=== PATIENT | female | born 1940 | race Caucasian/White ===

== ENCOUNTER 2016-09-24 18:00 | Inpatient (IN) ==
[2016-09-25] MEDS: *HR* OxyCODONE Immed Rel 5 MG TABLET PO PRN ×2 (17:15→22:58)
[2016-09-25] MEDS: Gabapentin 100 MG CAPSULE PO SCH (20:09)
--- NOTE | 2016-09-26 04:51 | Internal Med History&Physical ---
Date of Encounter: 09/26/16 Time of Encounter: 09:16 Assessment and Plan (1) Weakness Current visit: No Status: Acute PT and OT to work on an increasing strength, endurance safe T improving ADL will work on maximizing functional independent this would ADL, task to maximize CAT for safe return to home. d (2) Opiate withdrawal Current visit: Yes Status: Acute Well start on a lower dose of pain medications to avoid excessive withdrawal symptoms (3) Hypertension Current visit: Yes Status: Chronic Qualifiers: Hypertension type: essential hypertension Qualified Code(s): I10 - Essential (primary) hypertension Internal Medicine - H&P: HPI Admitted From: Intrahospital Transfer Plans for Post Hospital Care: Home History of present illness: Ms. Angulo is a 76 year old female transferred to this facility for rehabilitation. Initially she was admitted for generalized weakness. She was trying to ambulate and fell. She stated that this weakness started the day after she ran out of her chronic opiate medication. She has been unable to refill them. She complains of tailbone pain after the fall. CT revealed no acute fracture of the lumbar spine and pelvis. Patient lives alone. On today' s examination patient feels well. She has minimal pain. She is more awake alert and has more energy. No shortness of breath. No chest pain Past Med Surg Social Fam HX - Past Medical History Medical history: CVA, fibromyalgia, GERD, hyperlipidemia, hypertension - Past Surgical History Surgical History: herniorrhaphy, hip replacement, hysterectomy, knee replacement - Social History Smoking Status: Never smoker Alcohol use: none Drug use: none - Family History Mother Living Status: Father Living Status: Internal Medicine - H&P: Meds Citalopram Hydrobromide [Celexa] 20 mg PO DAILY 09/22/16 [History] Diltiazem CD (24hr) [Cardizem CD] 240 mg PO DAILY 09/22/16 [History] Furosemide [Lasix] 20 mg PO DAILY 09/22/16 [History] Meclizine HCl [Verticalm] 25 mg PO BID PRN 09/22/16 [History] Omeprazole [PriLOSEC] 20 mg PO DAILY 09/22/16 [History] Potassium Chloride [Klor-Con Sprinkle] 10 meq PO BID 09/22/16 [History] Simvastatin [Zocor] 20 mg PO HS 09/22/16 [History] Zolpidem [Ambien] 5 mg PO HS 09/22/16 [History] Allergies morphine Allergy (Verified 09/22/16 12:10) Nausea All Systems PM: A 10-system review of systems was performed and is negative for pertinent findings except as documented above in the HPI. - Constitutional Constitutional: falls, lethargy, malaise, weakness - Cardiovascular Cardiovascular ROS IM: no chest pain, no diaphoresis, no dyspnea, no lightheadedness, no palpitations, no syncope - Respiratory Respiratory: no cough, no dyspnea, no wheezing, no excessive phlegm production - Gastrointestinal Gastrointestinal: no abdominal pain, no diarrhea, no hematemesis, no hematochezia, no melena, no nausea, no vomiting - Musculoskeletal Musculoskeletal ROS IM: back pain, joint swelling, stiffness - Neurological Neurological ROS: abnormal gait - Psychiatric Psychiatric: anxiety, depression - Constitutional Vitals: Temp Pulse Resp BP Pulse Ox 97.4 F L 74 18 131/78 90 L 09/26/16 04:27 09/26/16 04:27 09/25/16 23:59 09/26/16 04:27 09/26/16 04:27 General appearance: Present: A&O X 3, pleasant, no acute distress - Respiratory Respiratory exam: Present: CTAB. Absent: accessory muscle use, rales, rhonchi, wheezes - Cardiovascular Cardiovascular exam: Present: RRR, +S1, +S2. Absent: diastolic murmur, gallop, rubs, systolic murmur - GI/Abdominal GI/Abdominal exam: Present: normal bowel sounds, soft, no peritoneal signs. Absent: distended, tenderness - Extremities Exam Extremities exam: Present: warm, radial pulses palpable and symetrical. Absent : calf tenderness, cyanotic, pedal edema - Neurological Exam Neurological exam: Present: oriented X3, no focal deficits. Absent: pronater drift, facial droop, speech deficit Internal Med - H&P Results - Labs CBC & Chem 7: 09/26/16 05:05 09/26/16 05:05 - VTE Documentation of Mechanical Device: Graduated compression elastic hosiery
[2016-09-26] MEDS: *HR* OxyCODONE Immed Rel 5 MG TABLET PO PRN ×3 (05:05→18:10)
[2016-09-26 05:31] LABS: Basophils % 0.4 %; Eosinophils # 0.2 K/mcL (0.0-0.6); Hematocrit 34.3 % (35.3-44.9); Hemoglobin 11.4 g/dL (11.5-15.4); Immature Granulocytes % 0.4 % (0-4); Lymphocytes # 1.4 K/mcL (0.6-4.6); Lymphocytes % 19.4 %; Mean Corpuscular HGB Conc 33.2 g/dL (31.6-35.5); Mean Corpuscular Hemoglobin 29.8 pg (28.0-33.3); Mean Corpuscular Volume 89.6 fL (83.0-100.0); Mean Platelet Volume 9.9 fL (9.4-12.4); Monocytes # 0.6 K/mcL (0.0-1.3); Monocytes % 7.9 %; Platelet Count 261 K/mcL (140-400); Red Blood Count 3.83 M/mcL (3.82-4.97); Red Cell Distribution Width 12.8 % (11.5-14.5); Segmented Neutrophils % 68.9 %
[2016-09-26 05:38] LABS: INR 1.1; Prothrombin Time 12.2 Seconds (9.4-12.1)
[2016-09-26 05:40] LABS: Activated Partial Thrombo Time 28.6 Seconds (26.0-36.0)
[2016-09-26 05:45] LABS: BUN/Creatinine Ratio 16 (6-26); Blood Urea Nitrogen 12 mg/dL (7-20); Calcium 8.9 mg/dL (8.6-10.8); Carbon Dioxide 31 mEq/L (19-29); Chloride 99 mEq/L (98-109); Glucose 100 mg/dL (70-99); Osmolality,Calculated 292 (280-300); Potassium 3.5 mEq/L (3.5-4.5); Sodium 141 mEq/L (136-145); eGFR For African Americans > 60 (> 60); eGFR For Non-African Americans > 60 (> 60)
[2016-09-26] MEDS: Furosemide 20 MG TABLET PO SCH (09:34)
[2016-09-26] MEDS: Diltiazem CD (24hr) 240 MG CAPSULE PO SCH (09:34)
[2016-09-26] MEDS: Gabapentin 100 MG CAPSULE PO SCH ×3 (09:34→20:07)
[2016-09-27] MEDS: *HR* OxyCODONE Immed Rel 5 MG TABLET PO PRN ×3 (03:36→20:05)
[2016-09-27] MEDS: Furosemide 20 MG TABLET PO SCH (09:45)
[2016-09-27] MEDS: Gabapentin 100 MG CAPSULE PO SCH ×3 (09:45→20:03)
[2016-09-27] MEDS: Diltiazem CD (24hr) 240 MG CAPSULE PO SCH (09:45)
--- NOTE | 2016-09-27 12:25 | Internal Med Progress Note ---
Date of Encounter: 09/27/16 Time of Encounter: 12:23 - Assessment and plan (1) Opiate withdrawal Current Visit: Yes Status: Acute Assessment and plan: Rarely the patient's renal pain pills for some time and rationale. So she may have had some degree of withdrawal symptoms (2) Hypertension Current Visit: Yes Status: Chronic Qualifiers: Hypertension type: essential hypertension Qualified Code(s): I10 - Essential (primary) hypertension (3) Weakness Current Visit: No Status: Acute Assessment and plan: May be due to age it may be due to chronic debilitation and may be due to opiate withdrawal. It is improved - Time Spent With Patient less than 15 minutes - Subjective Interval history: Patient had weakness fell lives alone and was brought in now for deconditioning. - Constitutional Vitals: Temp Pulse Resp BP Pulse Ox 98.0 F 71 18 133/70 93 L 09/27/16 06:40 09/27/16 06:40 09/27/16 06:40 09/27/16 06:40 09/27/16 06:40 General appearance: Present: A&O X 3, pleasant, no acute distress - Head Head exam: Present: atraumatic, normal inspection, normocephalic - Neck Neck exam general surgery: Present: supple, trachea midline. Absent: lymphadenopathy - Respiratory Respiratory exam: Present: CTAB. Absent: accessory muscle use, rales, rhonchi, wheezes - Cardiovascular Cardiovascular exam: Present: RRR, +S1, +S2. Absent: diastolic murmur, gallop, rubs, systolic murmur - GI/Abdominal GI/Abdominal exam: Present: normal bowel sounds, soft, no peritoneal signs. Absent: distended, tenderness Internal Medicine: Result - Labs CBC & Chem 7: 09/26/16 05:05 09/26/16 05:05 Labs: Lab appears to be stable - ABG Interpretation ABG results: PT/INR, D-dimer PT 12.2 Seconds (9.4-12.1) H 09/26/16 05:05 - VTE Documentation of Mechanical Device: Graduated compression elastic hosiery Consult Discharge Plan - Plan Referrals: Alexia Gee [Primary Care Provider] -
[2016-09-28] MEDS: *HR* OxyCODONE Immed Rel 5 MG TABLET PO PRN ×3 (03:36→18:38)
[2016-09-28 05:51] LABS: BUN/Creatinine Ratio 11 (6-26); Blood Urea Nitrogen 8 mg/dL (7-20); Calcium 9.2 mg/dL (8.6-10.8); Carbon Dioxide 31 mEq/L (19-29); Chloride 100 mEq/L (98-109); Glucose 108 mg/dL (70-99); Osmolality,Calculated 289 (280-300); Potassium 3.9 mEq/L (3.5-4.5); Sodium 140 mEq/L (136-145); eGFR For African Americans > 60 (> 60); eGFR For Non-African Americans > 60 (> 60)
[2016-09-28 05:58] LABS: Basophils % 0.4 %; Eosinophils # 0.2 K/mcL (0.0-0.6); Eosinophils % 2.9 %; Hematocrit 33.9 % (35.3-44.9); Hemoglobin 11.4 g/dL (11.5-15.4); Immature Granulocytes % 0.4 % (0-4); Lymphocytes # 1.4 K/mcL (0.6-4.6); Lymphocytes % 18.6 %; Mean Corpuscular HGB Conc 33.6 g/dL (31.6-35.5); Mean Corpuscular Volume 89.2 fL (83.0-100.0); Mean Platelet Volume 9.8 fL (9.4-12.4); Monocytes # 0.6 K/mcL (0.0-1.3); Monocytes % 7.6 %; Neutrophils # 5.2 K/mcL (1.6-8.9); Platelet Count 276 K/mcL (140-400); Red Cell Distribution Width 12.6 % (11.5-14.5); Segmented Neutrophils % 70.1 %
[2016-09-28] MEDS: Gabapentin 100 MG CAPSULE PO SCH ×3 (10:02→21:38)
[2016-09-28] MEDS: Furosemide 20 MG TABLET PO SCH (10:02)
[2016-09-28] MEDS: Diltiazem CD (24hr) 240 MG CAPSULE PO SCH (10:03)
--- NOTE | 2016-09-28 11:47 | Internal Med Progress Note ---
Date of Encounter: 09/28/16 Time of Encounter: 11:45 - Assessment and plan (1) Weakness Current Visit: No Status: Acute Assessment and plan: May be due to age it may be due to chronic debilitation and may be due to opiate withdrawal. It is improved (2) Opiate withdrawal Current Visit: Yes Status: Acute Assessment and plan: Opiate medications being monitored carefully. (3) Hypertension Current Visit: Yes Status: Chronic Qualifiers: Hypertension type: essential hypertension Qualified Code(s): I10 - Essential (primary) hypertension - Time Spent With Patient less than 15 minutes - Subjective Interval history: Complains of mild tailbone pain. Also complains constipated. Given Colace. No shortness of breath. No chest pain. Feels like she is getting stronger every day. No chest pain. No nausea or vomiting. Good oral intake - Constitutional Vitals: Temp Pulse Resp BP Pulse Ox 98.4 F 71 18 134/75 92 L 09/28/16 07:51 09/28/16 07:51 09/28/16 07:51 09/28/16 07:51 09/28/16 07:51 General appearance: Present: A&O X 3, pleasant, no acute distress - Respiratory Respiratory exam: Present: CTAB. Absent: accessory muscle use, rales, rhonchi, wheezes - Cardiovascular Cardiovascular exam: Present: RRR, +S1, +S2. Absent: diastolic murmur, gallop, rubs, systolic murmur - GI/Abdominal GI/Abdominal exam: Present: normal bowel sounds, soft, no peritoneal signs. Absent: distended, tenderness - Extremities Exam Extremities exam: Present: warm, radial pulses palpable and symetrical. Absent : calf tenderness, cyanotic, pedal edema - Neurological Exam Neurological exam: Present: CN II-XII intact, oriented X3, no focal deficits. Absent: pronater drift, facial droop, speech deficit Internal Medicine: Result - Labs CBC & Chem 7: 09/28/16 05:30 09/28/16 05:30 Labs: Short CBC 09/28/16 Range/Units 05:30 WBC 7.5 (4.3-11.1) K/mcL Hgb 11.4 L (11.5-15.4) g/dL Hct 33.9 L (35.3-44.9) % Plt Count 276 (140-400) K/mcL Neutrophils # 5.2 (1.6-8.9) K/mcL BMP 09/28/16 05:30 Sodium 140 Potassium 3.9 Chloride 100 Carbon Dioxide 31 H BUN 8 Creatinine 0.72 Glucose 108 H Calcium 9.2 - ABG Interpretation ABG results: PT/INR, D-dimer PT 12.2 Seconds (9.4-12.1) H 09/26/16 05:05 - VTE Documentation of Mechanical Device: Graduated compression elastic hosiery Consult Discharge Plan - Plan Referrals: Alexia Gee [Primary Care Provider] -
--- NOTE | 2016-09-29 00:17 | Internal Med Progress Note ---
Date of Encounter: 09/29/16 Time of Encounter: 07:55 - Assessment and plan (1) Weakness Current Visit: No Status: Acute Assessment and plan: Improving with PT OT in terms of endurance transfer, gait and improving ADL. Standing tolerance increasing. Continues to need walker. d (2) Opiate withdrawal Current Visit: Yes Status: Acute Assessment and plan: Opiate medications being monitored carefully. (3) Hypertension Current Visit: Yes Status: Chronic Qualifiers: Hypertension type: essential hypertension Qualified Code(s): I10 - Essential (primary) hypertension - Time Spent With Patient less than 15 minutes - Subjective Interval history: Complains of mild tailbone pain. Given Colace. No shortness of breath. No chest pain. Feels like she is getting stronger every day. No chest pain. No nausea or vomiting. Good oral intake - Constitutional Vitals: Temp Pulse Resp BP Pulse Ox 97.8 F 78 14 137/66 93 L 09/28/16 19:00 09/28/16 19:00 09/28/16 19:00 09/28/16 19:00 09/28/16 19:00 General appearance: Present: A&O X 3, pleasant, no acute distress - Respiratory Respiratory exam: Present: CTAB. Absent: accessory muscle use, rales, rhonchi, wheezes - Cardiovascular Cardiovascular exam: Present: RRR, +S1, +S2. Absent: diastolic murmur, gallop, rubs, systolic murmur - GI/Abdominal GI/Abdominal exam: Present: normal bowel sounds, soft, no peritoneal signs. Absent: distended, tenderness - Extremities Exam Extremities exam: Present: warm, radial pulses palpable and symetrical. Absent : calf tenderness, cyanotic, pedal edema - Back Exam Back exam: Present: tenderness, vertebral tenderness - Neurological Exam Neurological exam: Present: CN II-XII intact, oriented X3, no focal deficits. Absent: pronater drift, facial droop, speech deficit Internal Medicine: Result - Labs CBC & Chem 7: 09/28/16 05:30 09/28/16 05:30 Labs: Short CBC 09/28/16 Range/Units 05:30 WBC 7.5 (4.3-11.1) K/mcL Hgb 11.4 L (11.5-15.4) g/dL Hct 33.9 L (35.3-44.9) % Plt Count 276 (140-400) K/mcL Neutrophils # 5.2 (1.6-8.9) K/mcL BMP 09/28/16 05:30 Sodium 140 Potassium 3.9 Chloride 100 Carbon Dioxide 31 H BUN 8 Creatinine 0.72 Glucose 108 H Calcium 9.2 - ABG Interpretation ABG results: PT/INR, D-dimer PT 12.2 Seconds (9.4-12.1) H 09/26/16 05:05 - VTE Documentation of Mechanical Device: Graduated compression elastic hosiery Consult Discharge Plan - Plan Referrals: Alexia Gee [Primary Care Provider] -
[2016-09-29 03:06] LABS: Bilirubin,Urine Negative (Negative); Blood,Urine Trace-intact (Negative); Clarity,Urine Clear (Clear); Color,Urine Yellow (Yellow); Glucose,Urine (UA) Normal (Normal); Ketones,Urine Negative (Negative); Leukocyte Esterase,Urine Negative (Negative); Nitrite,Urine Negative (Negative); PH,Urine 7.5 pH Units (5.0-8.0); Protein,Urine Negative (Neg-Trace); Specific Gravity,Urine 1.015 (1.010-1.025); Urobilinogen,Urine Normal (Normal)
[2016-09-29 03:08] LABS: Squamous Epithelial Cell,Urine Few per lpf (None-Few); WBC,Urine 0-3 per hpf (0-3)
[2016-09-29] MEDS: *HR* OxyCODONE Immed Rel 5 MG TABLET PO PRN ×3 (05:58→19:44)
[2016-09-29] MEDS: Furosemide 20 MG TABLET PO SCH (09:22)
[2016-09-29] MEDS: Diltiazem CD (24hr) 240 MG CAPSULE PO SCH (09:22)
[2016-09-29] MEDS: Gabapentin 100 MG CAPSULE PO SCH ×3 (09:22→19:43)
[2016-09-30] MEDS: *HR* OxyCODONE Immed Rel 5 MG TABLET PO PRN ×3 (03:57→20:17)
[2016-09-30] MEDS: Furosemide 20 MG TABLET PO SCH (08:26)
[2016-09-30] MEDS: Gabapentin 100 MG CAPSULE PO SCH ×3 (08:26→20:16)
[2016-09-30] MEDS: Diltiazem CD (24hr) 240 MG CAPSULE PO SCH (08:26)
--- NOTE | 2016-09-30 12:19 | Physical Med Progress Note ---
Date of Encounter: 09/30/16 Time of Encounter: 12:16 Physical Medicine-PN: Subj Interval history: PMR PCC note Patient is SBA for ambulation with walker. She continues to require cues for walker saftey. Patient has a history of multiple falls. She is easily confused , tangential speech, disorganized thoughts. No carry over for safety education. Patient lives alone. Daughter helps. Family comes to clean. Patient declined home saftey visit. Plan for discharge to home with home health on 10/02/16. - Constitutional Vitals: Vital Signs Temp Pulse Resp BP Pulse Ox 09/30/16 07:00 98.2 F 96 16 159/85 95 09/29/16 19:00 99.4 F 85 16 142/80 93 L Intake and Output 09/29/16 09/30/16 09/30/16 23:59 07:59 15:59 Intake Total 240 / 240 Balance 240 / 240 Intake: Oral 240 / 240 Other: Meal Breakfast Percent of Meal Consumed 65% # Voids 1 1 Physical Medicine-PN: Obj Data - Labs CBC & Chem 7: 09/28/16 05:30 09/28/16 05:30 - ABG Interpretation ABG results: PT/INR, D-dimer PT 12.2 Seconds (9.4-12.1) H 09/26/16 05:05 - VTE Documentation of Mechanical Device: Graduated compression elastic hosiery Consult Discharge Plan - Plan Referrals: Alexia Gee [Primary Care Provider] -
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
[2016-10-01] MEDS: *HR* OxyCODONE Immed Rel 5 MG TABLET PO PRN ×3 (05:04→22:05)
[2016-10-01] MEDS: Gabapentin 100 MG CAPSULE PO SCH ×3 (09:20→22:02)
[2016-10-01] MEDS: Furosemide 20 MG TABLET PO SCH (09:20)
[2016-10-01] MEDS: Diltiazem CD (24hr) 240 MG CAPSULE PO SCH (09:20)
--- NOTE | 2016-10-01 13:18 | Internal Med Progress Note ---
Date of Encounter: 10/01/16 Time of Encounter: 13:15 - Assessment and plan (1) Opiate withdrawal Current Visit: Yes Status: Acute Assessment and plan: See the history but patient was a long-term pain medicine and stopped it. This may have contributed to her weakness (2) Hypertension Current Visit: Yes Status: Chronic Assessment and plan: Pressures well controlled Qualifiers: Hypertension type: essential hypertension Qualified Code(s): I10 - Essential (primary) hypertension (3) Weakness Current Visit: No Status: Acute Assessment and plan: Weakness may have been related to her opiate withdrawal - Time Spent With Patient less than 15 minutes - Subjective Interval history: Patient had weakness fell .lives alone and was brought in now for deconditioning. Patient is doing well would be discharge home tomorrow - Constitutional Vitals: Temp Pulse Resp BP Pulse Ox 97.0 F L 100 18 115/69 96 10/01/16 10:19 10/01/16 10:19 10/01/16 10:19 10/01/16 10:19 10/01/16 10:19 General appearance: Present: A&O X 3, pleasant, no acute distress - Head Head exam: Present: atraumatic, normal inspection, normocephalic - Neck Neck exam general surgery: Present: supple, trachea midline. Absent: lymphadenopathy - Respiratory Respiratory exam: Present: CTAB. Absent: accessory muscle use, rales, rhonchi, wheezes - Cardiovascular Cardiovascular exam: Present: RRR, +S1, +S2. Absent: diastolic murmur, gallop, rubs, systolic murmur Internal Medicine: Result - Labs CBC & Chem 7: 09/28/16 05:30 09/28/16 05:30 Labs: Lab appears stable - ABG Interpretation ABG results: PT/INR, D-dimer PT 12.2 Seconds (9.4-12.1) H 09/26/16 05:05 - VTE Documentation of Mechanical Device: Graduated compression elastic hosiery Consult Discharge Plan - Plan Referrals: Alexia Gee [Primary Care Provider] -
[2016-10-02] MEDS: *HR* OxyCODONE Immed Rel 5 MG TABLET PO PRN ×2 (06:15→14:59)
[2016-10-02 07:02] VITALS: BP 145/79
[2016-10-02] MEDS: Diltiazem CD (24hr) 240 MG CAPSULE PO SCH (08:45)
[2016-10-02] MEDS: Furosemide 20 MG TABLET PO SCH (08:46)
[2016-10-02] MEDS: Gabapentin 100 MG CAPSULE PO SCH ×2 (08:46→14:59)
--- NOTE | 2016-10-02 11:30 | Discharge Summary ---
Date of Encounter: 10/02/16 Time of Encounter: 11:29 - Discharge Diagnosis (1) Opiate withdrawal Priority: Secondary Status: Acute (2) Hypertension Priority: Secondary Status: Chronic Qualifiers: Hypertension type: essential hypertension Qualified Code(s): I10 - Essential (primary) hypertension (3) Weakness Priority: Primary Status: Acute - Discharge Medications Home Medications: Citalopram Hydrobromide [Celexa] 20 mg PO DAILY 09/22/16 [History] Diltiazem CD (24hr) [Cardizem CD] 240 mg PO DAILY 09/22/16 [History] Furosemide [Lasix] 20 mg PO DAILY 09/22/16 [History] Meclizine HCl [Verticalm] 25 mg PO BID PRN 09/22/16 [History] Omeprazole [PriLOSEC] 20 mg PO DAILY 09/22/16 [History] Potassium Chloride [Klor-Con Sprinkle] 10 meq PO BID 09/22/16 [History] Simvastatin [Zocor] 20 mg PO HS 09/22/16 [History] Zolpidem [Ambien] 5 mg PO HS 09/22/16 [History] Allergies/Adverse Reactions: Allergies morphine Allergy (Verified 09/22/16 12:10) Nausea Date of admission: 09/25/16 14:25 Primary care physician: Alexia Gee Consults: 09/25/16 15:14 Consult to Occupational Therapy [CONS] Routine Comment: Evaluate, develop and implement POC Consult to Physical Therapy [CONS] Routine Comment: Evaluate, develop and implement POC Consult to Recreational Therapy [CONS] Routine Comment: Evaluate, develop and implement POC Consult to Automotive Glass Technician [CONS] Routine Reason for SW Consult: for discharge planning 09/29/16 12:02 Consult to Psychology [CONS] Routine Consulting Provider: Aurora Okeefe Reason for Consult: reported narcotic abuse Call Completed: No Discharging clinician: Karlo Shields Anticipated date of discharge: 10/02/16 - Patient Status Disposition: Home Health Service Condition: Good Functional capacity at discharge: uses cane/walker Overall status at discharge: patient is progressing back to baseline - Discharge Instructions Follow Up With: Piter Lazar DO [Partnered Physician] - 10/14/16 9:35 am (pain management) Alexia Gee [Primary Care Provider] - 10/06/16 2:20 pm - Diet and Activity Activity: ambulate only with your walker Diet: advance to your usual diet Interval History: Mrs. Bojorquez by home was sent to the [facility] rehabilitation after sustaining a weakness and inability to ambulate. She also had some stop taking long-term opiate medications which probably cause withdrawal symptoms Hospital course: Ms. Angulo is a 76 year old female Patient has been working with PT OT going down the luke quite nicely with a walker and will be discharged home with a walker. Symptoms of opiate withdrawal have resolved and they did start her on her chronic medication. - Time Spent with Patient Total time spent providing and/or coordinating discharge services: - Constitutional Vitals: Temp Pulse Resp BP Pulse Ox 98.0 F 99 17 145/79 92 L 10/02/16 07:00 10/02/16 07:00 10/02/16 07:00 10/02/16 07:00 10/02/16 07:00 General appearance: Present: A&O X 3, pleasant, no acute distress - Head Head exam: Present: atraumatic, normal inspection, normocephalic - Neck Neck exam general surgery: Present: supple, trachea midline. Absent: lymphadenopathy - Respiratory Respiratory exam: Present: CTAB. Absent: accessory muscle use, rales, rhonchi, wheezes - Cardiovascular Cardiovascular exam: Present: RRR, +S1, +S2. Absent: diastolic murmur, gallop, rubs, systolic murmur - GI/Abdominal GI/Abdominal exam: Present: normal bowel sounds, soft, no peritoneal signs. Absent: distended, tenderness - VTE Documentation of Mechanical Device: Graduated compression elastic hosiery
--- NOTE | 2016-10-02 11:34 | Physician Discharge Referral ---
Home Health/Hosp Referral Info Transfer to: Home Health Provider in Charge Post Discharge: PCP - Diagnosis (1) Opiate withdrawal Priority: Primary Status: Acute (2) Hypertension Priority: Secondary Status: Chronic (3) Weakness Priority: Primary Status: Acute - Respiratory Orders Smoking Cessation: Smoking cessation has been advised. For more information, call the [place] Tobacco Quit Line at 5-118-MHUV-NOW. - Diet/Nutrition Diet/Nutrition Orders: Regular - Activity Activity Orders: Walker - Services Needed Following services are medically necessary services: Nursing, Physical Therapy, Occupational Therapy - Transfer Medications Home Medications: Citalopram Hydrobromide [Celexa] 20 mg PO DAILY 09/22/16 [History] Diltiazem CD (24hr) [Cardizem CD] 240 mg PO DAILY 09/22/16 [History] Furosemide [Lasix] 20 mg PO DAILY 09/22/16 [History] Meclizine HCl [Verticalm] 25 mg PO BID PRN 09/22/16 [History] Omeprazole [PriLOSEC] 20 mg PO DAILY 09/22/16 [History] Potassium Chloride [Klor-Con Sprinkle] 10 meq PO BID 09/22/16 [History] Simvastatin [Zocor] 20 mg PO HS 09/22/16 [History] Zolpidem [Ambien] 5 mg PO HS 09/22/16 [History] Allergies/Adverse Reactions: Allergies morphine Allergy (Verified 09/22/16 12:10) Nausea Certification: Further, I certify that my clinical findings support that this patient is homebound (i.e. absences from home require considerable and taxing effort and are for medical reasons or yazidi services or infrequently or short duration when for other reasons) because: Homebound Reason: Patient requires assistance of a person or device to safely leave home Attestation: My signature below is to certify that this patient is under my care and that I, or nurse practitioner, or a physician's family law legal assistant working with me, has a face-to -face encounter with this patient.
== END 2016-10-02 16:34 | disposition home health service (06) | DRG 945 ==
LOC: INPGRE 09-25 14:25
PROVIDERS: ADMIT Internal Medicine; ATTEND Internal Medicine